=== PATIENT | male | born 1965 | race Caucasian/White ===

== ENCOUNTER 2020-03-03 10:19 | Day surgery (SDC) | payer OTHER ==
[2020-02-26 12:22] VITALS: BMI 28.2
[2020-03-03] MEDS ORDERED: PROPOFOL 20 ML ONE (10:33)
[2020-03-03] MEDS ORDERED: MIDAZOLAM HCL 2 MG/2 ML SINGLE DOSE VIAL ONE ×2 (10:33)
[2020-03-03] MEDS ORDERED: BUPIVACAINE HCL/PF 0.25% (2.5MG/ML) 10 ML VIAL ONE ×2 (11:16→11:18)
[2020-03-03] MEDS ORDERED: LIDOCAINE HCL 2% (20ML MULTI-DOSE VIAL) ONE (11:16)
[2020-03-03] MEDS ORDERED: BUPIVACAINE HCL/PF 0.25% (2.5MG/ML) 10 ML VIAL IJ ONE (11:28)
[2020-03-03 12:07] VITALS: TEMP 98.2
[2020-03-03 12:28] VITALS: BP 144/80; PULSE 70
--- NOTE | 2020-03-03 12:30 | OP ---
DATE OF OPERATION: 03/03/2020 PREOPERATIVE DIAGNOSIS: Left ring finger mass. POSTOPERATIVE DIAGNOSIS: Left ring finger mass. OPERATIVE PROCEDURE: Left ring finger mass excision. SURGEON: Chencho Coles MD ANESTHESIA: Local. COMPLICATIONS: None. ESTIMATED BLOOD LOSS: Minimal. INDICATIONS FOR PROCEDURE: The patient presented with the above finding, indicated for operative treatment. The risks, benefits and alternatives were discussed with the patient at length. Proper informed consent was obtained. PROCEDURE: Prior to starting the procedure the patient did have a tight ring on the finger which he agreed to have removed and I removed it atraumatically. Patient was then brought to the operating room and placed supine on the operating table. All bony prominences were well padded. Local anesthesia was given with 0.25% Marcaine. Left upper extremity was prepped and draped in the usual sterile fashion. A well-padded tourniquet was placed above the sterile prep. Esmarch bandage to exsanguinate the left upper extremity. Tourniquet was inflated to 250 mmHg. The patient's mass appeared to be a pyogenic granuloma and was excised in whole. At this point the hole that was left in the finger over the volar aspect of the middle side measured approximately 4-mm x 4-mm. This was not closable and there was still some deep tissue left that remained suspicious. Therefore, a longitudinal ellipsoid incision was made distal and proximally to the previously excised mass and the tissue in this area was excised, carefully protecting the neurovascular structure. Hemostasis was performed with bipolar electrocautery, again taking care to protect the neurovascular structure. Once it was clear that all of the tissue was removed and the skin was reparable in a [id number] fashion, the skin was repaired in a [id number] fashion using 5-0 fast-absorbing plain gut suture as well as Dermabond. Sterile dressings were applied. Patient was brought to the recovery room in stable condition. He tolerated the procedure well. CHENCHO COLES M.D. PRASHANT/[id number]
--- NOTE | 2020-03-08 11:51 | PATH ---
Surgical Pathology Report Patient Name: WEN ALSTON [facility]. Rec. #: [id number] /Age/Gender: 1965 (Age: 54) / M Account: [id number] Location: [facility] Taken: 03/03/2020 Received: 03/03/2020 Reported: 03/08/2020 Physicians: Chencho Mcdonough M.D. Specimen(s) Received LEFT RING FINGER MASS Clinical History Left ring finger mass Final Diagnosis LEFT RING FINGER MASS, EXCISION: PORTION OF SKIN SHOWING PYOGENIC GRANULOMA WITH FOCAL ULCERATION. Electronically Signed Cheo Philip M.D. Gross Description Received in formalin labeled "left ring finger mass," is a 1.2 x 0.9 x 0.3 cm gonsales portion of rubbery soft tissue. The specimen is serially sectioned and entirely submitted in one cassette. /03/04/2020 saudi03/04/2020
== END 2020-03-03 12:30 | disposition home or self-care (01) ==
LOC: FASU 10:19
PROVIDERS: ATTEND Orthopaedic Surgery Hand Surgery
PROC: 0JBK0ZZ Excision of Left Hand Subcutaneous Tissue and Fascia, Open Approach (ICD-10-PCS; 2020-03-03)
PROC: 0JBK0ZX Excision of Left Hand Subcutaneous Tissue and Fascia, Open Approach, Diagnostic (ICD-10-PCS; principal; 2020-03-03 11:31)
DX: D21.12 Benign neoplasm of connective and other soft tissue of left upper limb, including shoulder (principal)
CPT/HCPCS: 88305-TC